=== PATIENT | female | born 1995 | race Two or more races ===

== ENCOUNTER 2018-08-20 20:03 | Emergency (ER) | payer SELFPAY ==
[2018-08-20 20:09] VITALS: BP 102/69; PULSE 80; TEMP 98.2; BMI 22.3
[2018-08-20] MEDS ORDERED: KETOROLAC TROMETHAMINE 30 MG/1 ML VIAL IVPUSH ONE ×2 (20:19→20:30)
[2018-08-20] MEDS ORDERED: METOCLOPRAMIDE HCL 10 MG TABLET (FP) PO ONE (20:25)
[2018-08-20] MEDS ORDERED: KETOROLAC TROMETHAMINE 60 MG/2 ML VIAL IM ONE (20:25)
[2018-08-20] MEDS ORDERED: KETOROLAC TROMETHAMINE 30 MG/1 ML VIAL ONE (20:30)
[2018-08-20] MEDS ORDERED: METOCLOPRAMIDE HCL INJECTION 10 MG/2 ML VIAL IVPUSH ONE (20:30)
[2018-08-20] MEDS ORDERED: METOCLOPRAMIDE HCL INJECTION 10 MG/2 ML VIAL ONE (20:30)
[2018-08-20 20:47] LABS: BASO % 0.4 % (0-2.0); EOS % 2.9 % (0-4.5); HEMATOCRIT 33.8 % (32.4-45.2); HEMOGLOBIN 10.7 GM/dl (10.7-15.3); LYMPH % 35.7 % (8-40); MCH 20.1 pg (25.7-33.7); MCHC 31.6 g/dl (32.0-36.0); MEAN CELL VOLUME 63.7 fl (80-96); MEAN PLT VOLUME 8.4 fl (7.5-11.1); MONO % 9.5 % (3.8-10.2); NEUT % 51.5 % (42.8-82.8); PLATELET COUNT 285 K/MM3 (134-434); RDW 14.4 % (11.6-15.6); WHITE BLOOD COUNT 9.8 K/mm3 (4.0-10.8)
[2018-08-20 20:55] LABS: ALBUMIN 3.9 g/dl (3.4-5.0); BILIRUBIN,TOTAL 0.8 mg/dl (0.2-1); CALCIUM 8.5 mg/dl (8.5-10); CREATININE 0.9 mg/dl (0.55-1.3); POTASSIUM 3.7 mmol/L (3.5-5.1)
--- NOTE | 2018-08-20 21:04 | PDOC ---
Documentation entered by Audie Fonseca SCRIBE, acting as scribe for Damon Nobles MD. Damon Nobles MD: This documentation has been prepared by the Raymundo wolfe Aiswarya, SCRIBE, under my direction and personally reviewed by me in its entirety. I confirm that the documentation accurately reflects all work, treatment, procedures, and medical decision making performed by me. History of Present Illness - General Chief Complaint: Pain, Acute Stated Complaint: MIGRAINE,LIGHTHEADED Time Seen by Provider: 08/20/18 20:13 History Source: Patient Exam Limitations: No Limitations - History of Present Illness Initial Comments: 08/20/18 20:44 The patient is a 23 year old female, with no significant PMH, who presents to the emergency department complaining of a migraine that began today. The patient states she endorses associated symptoms of lightheadedness( for 1 week) , decreased appetite, fatigue, mild nausea and photophobia. The patient states migraine is worse to the right side of the head. The patient denies chest pain and shortness of breath. Denies fever, chills, vomit, diarrhea and constipation. PAST MEDICAL HISTORY: no significant history PAST SURGICAL HISTORY: no significant history FAMILY HISTORY: no pertinent history SOCIAL HISTORY: Pt lives with family and is employed. MEDICATIONS: reviewed ALLERGIES: As per nursing notes Past History - Past Medical History Allergies/Adverse Reactions: Allergies Allergy/AdvReac Type Severity Reaction Status Date / Time No Known Allergies Allergy Verified 08/20/18 20:04 Home Medications: Ambulatory Orders NK [No Known Home Medication] 08/20/18 COPD: No Other medical history: DENIES - Suicide/Smoking/Psychosocial Hx Smoking History: Never smoked Have you smoked in the past 12 months: No Information on smoking cessation initiated: No Hx Alcohol Use: No Drug/Substance Use Hx: No Review of Systems - Review of Systems Able to Perform ROS?: Yes Comments:: 08/20/18 20:44 General: No fevers or chills, no weakness, no weight loss HEENT: No change in vision. No sore throat,. No ear pain CardioVascular: No chest pain or shortness of breath Respiratory:No cough, or wheezing. Gastrointestinal: +nausea. No vomiting, diarrhea or constipation, No rectal bleeding Genitourinary: No dysuria, hematuria, or frequency Musculoskeletal: No joint or muscle pain or swelling Neurologic: +Lightheadedness. No headache, vertigo, or loss of consciousness Psychiatric: nor depression Skin: No rashes or easy bruising Endocrine: no increased thirst or abnormal weight change Allergic: no skin or latex allergy All other systems reviewed and normal *Physical Exam - Vital Signs Last Vital Signs Temp Pulse Resp BP Pulse Ox 98.2 F 80 16 102/69 99 08/20/18 20:05 08/20/18 20:05 08/20/18 20:05 08/20/18 20:05 08/20/18 20:05 - Physical Exam Comments: 08/20/18 20:45 General: Well-nourished well-developed individual, no acute distress HEENT: Throat: Normal, tonsils normal, no erythema or exudate Neck: Supple, no meningeal signs, no lymphadenopathy Eyes::Pupils equal reactive and round, extraocular motion intact Chest: Nontender to palpation Cardiac: S1-S2 normal, regular rate and rhythm, no murmurs rubs or gallops Respiratory: Lungs clear to auscultation bilateral Extremities: Warm, dry, no cyanosis, clubbing, or edema Skin: No rashes Neuro: Alert and oriented x3, nonfocal exam, grossly intact, normal gait Psych: Normal mood and affect ED Treatment Course - LABORATORY CBC & Chemistry Diagram: 08/20/18 20:30 08/20/18 20:30 - ADDITIONAL ORDERS Additional order review: Laboratory Results 08/20/18 08/20/18 20:30 20:30 Sodium 139 Potassium 3.7 Chloride 103 Carbon Dioxide 28 Anion Gap 8 BUN 19.0 H Creatinine 0.9 Est GFR (CKD-EPI)AfAm 103.72 Est GFR (CKD-EPI)NonAf 89.49 Random Glucose 91 Calcium 8.5 Total Bilirubin 0.8 AST 14 L ALT 13 Alkaline Phosphatase 58 Total Protein 7.0 Albumin 3.9 Urine HCG, Qual Negative 08/20/18 20:30 RBC 5.30 H MCV 63.7 L MCHC 31.6 L RDW 14.4 MPV 8.4 Neutrophils % 51.5 Lymphocytes % 35.7 Monocytes % 9.5 Eosinophils % 2.9 Basophils % 0.4 - Medications Given in the ED: ED Medications Discontinued Medications Generic Name Dose Route Start Last Admin Trade Name Freq PRN Reason Stop Dose Admin Ketorolac Tromethamine 30 mg 08/20/18 20:19 08/20/18 20:37 Toradol Injection - IVPUSH 08/20/18 20:20 Not Given ONCE ONE Ketorolac Tromethamine 60 mg 08/20/18 20:25 08/20/18 20:36 Toradol Injection - IM 08/20/18 20:26 Not Given ONCE ONE Ketorolac Tromethamine 30 mg 08/20/18 20:30 08/20/18 20:35 Toradol Injection - IVPUSH 08/20/18 20:31 30 mg ONCE ONE Administration Metoclopramide HCl 10 mg 08/20/18 20:25 08/20/18 20:36 Reglan - PO 08/20/18 20:26 Not Given ONCE ONE Metoclopramide HCl 10 mg 08/20/18 20:30 08/20/18 20:35 Reglan Injection - IVPUSH 08/20/18 20:31 10 mg ONCE ONE Administration *DC/Admit/Observation/Transfer Diagnosis at time of Disposition: Migraine Qualifiers: Migraine type: unspecified Status migrainosus presence: without status migrainosus Intractability: not intractable Qualified Code(s): G43.909 - Migraine, unspecified, not intractable, without status migrainosus - Discharge Dispostion Disposition: HOME Condition at time of disposition: Stable Decision to Admit order: No - Referrals - Patient Instructions Additional Instructions: For the pain take Tylenol or Motrin as directed on the bottle. It is important that you get a primary care doctor as soon as possible Return to the emergency department immediately with ANY new, persistent or worsening symptoms. Continue any medications as previously prescribed by your physician. You should follow up with your primary doctor as soon as possible regarding today's emergency department visit. . Please make sure your doctor reviews the results of your emergency evaluation. Thank you for coming to the Emergency Department today for your care. It was a pleasure to see you today. Please note that your evaluation is INCOMPLETE until you follow-up with your doctor. - Post Discharge Activity
== END 2018-08-20 21:09 | disposition home or self-care (01) ==
LOC: FER 20:03
PROC: 3E0333Z Introduction of Anti-inflammatory into Peripheral Vein, Percutaneous Approach (ICD-10-PCS; principal; 2018-08-20)
PROC: 3E033GC Introduction of Other Therapeutic Substance into Peripheral Vein, Percutaneous Approach (ICD-10-PCS; 2018-08-20)
DX: G43.909 Migraine, unspecified, not intractable, without status migrainosus (principal)
CPT/HCPCS: 36415; 80053; 84703; 85025; 96374; 96375; 99281-25